=== PATIENT | female | born 1965 | race Caucasian/White ===

== ENCOUNTER 2024-11-18 06:30 | Day surgery (SDC) | payer MEDICARE, MEDICAID ==
[~2024-11-18] VITALS: Ht 167.6 cm; Wt 135.8 kg
[~2024-11-18 06:30] MED LIST: AMLO1TAB25 PO; BREO1INH; BUPR-71 PO; CARI-555 PO; DULO1CAP6 PO; ENAL1TAB52 PO; FURO40TA2 PO; HYDR-3719 PO; METF500T13 PO; METO1TAB33 PO; MULTTAB61 PO; OMEP-173 PO; ROSU40TA81 PO; SEMA0.257; SPIR-10 PO; SYMB16INH; TIZA10TA PO; VITA100093 PO; VITA1TAB82 PO; ZOLP10TA2 PO
[2024-11-18] MEDS ORDERED: LIDOCAINE 1% MDV 20 ML VIAL As Ordered ONE (07:04)
[2024-11-18] MEDS ORDERED: LIDOCAINE 2% INJ 100 MG/5 ML SYRINGE As Ordered ONE (07:04)
[2024-11-18 08:21] VITALS: BP 148/69; O2SAT 96
== END 2024-11-18 08:32 | disposition home or self-care (01) ==
LOC: M OPP 06:30
PROVIDERS: ATTEND Internal Medicine Gastroenterology
DX: D12.6 Benign neoplasm of colon, unspecified (principal); K55.20 Angiodysplasia of colon without hemorrhage; K57.30 Diverticulosis of large intestine without perforation or abscess without bleeding; K64.0 First degree hemorrhoids; Z86.0100 Personal history of colon polyps, unspecified; G47.30 Sleep apnea, unspecified; Z79.891 Long term (current) use of opiate analgesic; Z79.84 Long term (current) use of oral hypoglycemic drugs; Z79.85 Long-term (current) use of injectable non-insulin antidiabetic drugs; Z79.899 Other long term (current) drug therapy; J44.9 Chronic obstructive pulmonary disease, unspecified; F17.210 Nicotine dependence, cigarettes, uncomplicated